=== PATIENT | male | born 1950 | race Caucasian/White ===

== ENCOUNTER 2017-02-27 00:01 | Inpatient (IN) | payer MEDICAID, OTHER ==
[~2017-02-27] VITALS: Ht 157.5 cm; Wt 63.5 kg
[2017-02-27 00:12] VITALS: BP 145/73
--- NOTE | 2017-02-27 00:23 | NUR ---
Patient to bed 08.
--- NOTE | 2017-02-27 00:36 | NUR ---
Dr. Manning evaluating patient at bedside.
[2017-02-27] MEDS ORDERED: KETOROLAC 30 MG/ML VIAL IVP ONE (00:40)
[2017-02-27] MEDS ORDERED: cefTRIAXone 2,000 MG in DEXTROSE 5% 100 ML IV ONE (00:40)
--- NOTE | 2017-02-27 00:40 | NUR ---
CAME IN WITH HEADACHE AND RIGHT EAR PAIN 09/03. LUX[place]BOURG[place] SPEAKING. AWAKE, ALERT, ORIENTED. SEEN BY DR. CASTORENA AT BEDSIDE.
[2017-02-27] MEDS ORDERED: cefTRIAXone 2,000 MG VIAL ONE (00:54)
--- NOTE | 2017-02-27 01:00 | NUR ---
INSERTED NEW IV PERIPHERAL ON RIGHT AC G20.
--- NOTE | 2017-02-27 02:07 | NUR ---
Fely best in [facility] - 02/27/17 at [address] Manning at bedside to speak with patient.
[2017-02-27] MEDS ORDERED: TEGRETOL200 MG PO (02:14)
[2017-02-27] MEDS ORDERED: GLUCOPHAGE1000 MG PO (02:14)
[2017-02-27] MEDS ORDERED: NORCO 5/325 MG1 TAB PO (02:14)
[2017-02-27] MEDS ORDERED: LOTENSIN40 MG PO (02:14)
[2017-02-27] MEDS ORDERED: PROMETHAZINE D240 ML PO (02:14)
[2017-02-27] MEDS ORDERED: PROSCAR5 M1 PO (02:14)
[2017-02-27] MEDS ORDERED: FLOMAX0.4 MG PO (02:14)
[2017-02-27] MEDS ORDERED: RANITIDINE150 M1 PO (02:14)
[2017-02-27] MEDS ORDERED: LOPRESSOR25 MG PO (02:14)
[2017-02-27] MEDS ORDERED: GLUCOTROL10 MG PO (02:14)
--- NOTE | 2017-02-27 02:24 | NUR ---
EXAMINED BY DR. CASTORENA AT THE BEDSIDE WITH AN PAINT DEPARTMENT SUPERVISOR. AWARE OF SODIUM 122.
[2017-02-27] MEDS ORDERED: ONDANSETRON 4 MG/2 ML VIAL IVP PRN (03:05)
[2017-02-27] MEDS ORDERED: ACETAMINOPHEN 325 MG TAB PO PRN (03:05)
[2017-02-27] MEDS ORDERED: BLOOD GLUCOSE MONITORING 1 DEV DEV FS SCH (03:10)
[2017-02-27] MEDS ORDERED: glipiZIDE 10 MG TAB PO PRN (03:10)
[2017-02-27] MEDS ORDERED: INSULIN HUMAN REGULAR 100 UNITS in NACL 0.9% 100 ML IV SCH (03:10)
[2017-02-27] MEDS ORDERED: HYDROcodone/APAP 5/325 MG 1 TAB TAB PO SCH (03:10)
[2017-02-27] MEDS ORDERED: DEXTROSE 50% 50 ML SYR IVP PRN (03:10)
--- NOTE | 2017-02-27 03:16 | NUR ---
Patient will be admitted to care of DR. NOLEN. Admited to TELEMETRY. Will go to room 122A. Belongings list completed. Report to BLOSSOM STAUFFER.
[2017-02-27 04:00] VITALS: BP 138/74
--- NOTE | 2017-02-27 04:00 | NUR ---
ADMITTED 66 Y/O MALE TO TELE UNIT FROM ER VIA [facility] WITH DX: SEVERE HYPONATREMIA AND MALIGNANT RT OTITIS MEDIA. INITIAL ASSESSMENT, BODY CHECK AND ADMISSION INTERVENTIONS DONE. PATIENT AAO X 4, ABLE TO FOLLOW COMMAND AND MAKE NEEDS KNOWN AND AMBULATORY. NO S/S OF DISTRESS OR SOB NOTED UPON ADMISSION. SKIN WARM/ DRY TO TOUCH WITH NORMAL COLOR AND INTACT. PATIENT STILL C/O HEADACHE AT THIS TIME. INSTRUCTED PATIENT TO ROOM/UNIT. ALSO, DISCUSSED PLAN OF CARE, PAIN MANAGEMENT AND MEDICATION REGIMEN WITH PATIENT AND PATIENT VERBALIZED UNDERSTANDING. PLACED PATIENT ON SAFETY PRECAUTIONS AND WILL CONTINUE TO MONITOR. CALL LIGHT LEFT WITHIN REACH.
[2017-02-27] MEDS: MORPHINE SULFATE 2 MG/ML SYR IVP PRN ×4 (04:08→21:08)
[2017-02-27] MEDS: NACL 0.9% 1,000 ML IV SCH ×3 (04:18→14:52)
--- NOTE | 2017-02-27 04:40 | NUR ---
ADMINISTERED IVF AND PAIN MEDICATIONS MD'S ORDERED WITH EDUCATION GIVEN. PATIENT TOLERATED WELL AND STATED WITH SOME PAIN RELIEF AFTER 30 MINS POST-MEDICATION. KEPT PATIENT IN COMFORTABLE POSITION/WARM AND WILL CONTINUE TO MONITOR.
[2017-02-27] MEDS: BLOOD GLUCOSE MONITORING 1 DEV DEV FS SCH ×4 (05:41→21:05)
--- NOTE | 2017-02-27 06:01 | NUR ---
NOTED BLOOD SUGAR 84 MG/DL AND NO INSULIN COVERAGE REQUIRED. GAVE 1 BOX OF APPLE JUICE AND PATIENT TOLERATED WELL. NO S/S OF HYPOGLYCEMIA.
--- NOTE | 2017-02-27 07:13 | NUR ---
ENDORSED PLAN OF CARE TO XIOMY HERNANDEZ, AT BEDSIDE. PATIENT REMAINED IN STABLE CONDITION AND NO APPARENT DISTRESS NOTED.
--- NOTE | 2017-02-27 07:50 | NUR ---
RECEIVED PT LYING IN BED AAOX4, PLEASANT AND COOPERATIVE. PT C/O HEADACHE 10/10 AND GENERALIZED WEAKNESS AND POOR APPETITE. PT ALSO MENTIONED ABOUT HAVING NO BM X5 DAYS. PT'S PRESENT AT BEDSIDE. SHIFT ASSESSMENT DONE AND CHARTED. PLAN OF CARE,MEDS, TREATMENTS AND SAFETY DISCUSSED WITH PT AND HIS AND BOTH VERBALIZED UNDERSTANDING. WILL MEDICATE PT FOR HEADACHE PER PRN ORDER. WILL CONTINUE TO MONITOR PT.
[2017-02-27 08:00] VITALS: BP 150/82
--- NOTE | 2017-02-27 08:34 | NUR ---
PATIENT HAS BEEN SCREENED AND CATEGORIZED MODERATE NUTRITION RISK. PATIENT WILL BE SEEN WITHIN 3-5 DAYS OF ADMISSION. 03/01/17-03/03/[address]
[2017-02-27] MEDS: metFORMIN 500 MG TAB PO SCH ×2 (08:39→17:58)
[2017-02-27] MEDS: FINASTERIDE 5 MG TAB PO SCH (08:39)
[2017-02-27] MEDS: carBAMazepine 200 MG TAB PO SCH (08:40)
[2017-02-27] MEDS: TAMSULOSIN 0.4 MG CAP PO SCH (08:40)
[2017-02-27] MEDS: BENAZEPRIL 20 MG TAB PO SCH (08:41)
[2017-02-27] MEDS ORDERED: BISACODYL 10 MG SUPP RC SCH (08:45)
--- NOTE | 2017-02-27 08:45 | NUR ---
DR. JARAMILLO WAS IN AND MADE AWARE OF PT C/O OF NO BM X 5 DAYS AND WAS ASKING FOR SUPPOSITORY. GAVE NEW ORDERS. WILL CONTINUE TO CHECK ON PT.
--- NOTE | 2017-02-27 08:56 | NUR ---
PT MEDICATED WITH MORPHINE 2 MG PER PRN ORDER FOR C/O HEADACHE 09/03. WILL CONTINUE TO CHECK ON PT.
[2017-02-27] MEDS ORDERED: PROMETHAZINE DM 6.25/15MG-5ML ORASYR PO SCH (09:00)
[2017-02-27] MEDS ORDERED: METOPROLOL 25 MG TAB PO SCH (09:00)
[2017-02-27] MEDS ORDERED: PROMETHAZINE DM 6.25/15MG-5ML ORASYR PO PRN (09:00)
--- NOTE | 2017-02-27 09:27 | NUR ---
LAB CALLED BARRON TELLEZ+ [phone]. WILL NOTIFY MD BARRON GUNTER.
--- NOTE | 2017-02-27 09:38 | NUR ---
PT LYING IN BED WITH EYES CLOSED. PT STATED THAT HE FELT BETTER BUT PAIN WAS STILL THERE 03/04.
--- NOTE | 2017-02-27 11:30 | NUR ---
DR. LOVELL WAS IN TO SEE PT. ALREADY AWARE OF NA+ OF 123. MD LEFT NO NEW ORDERS.
[2017-02-27 12:00] VITALS: BP 152/78
--- NOTE | 2017-02-27 12:13 | NUR ---
CM NOTE INITIAL REVIEW FAXED TO REINIER JASSO / FAX# [phone]
--- NOTE | 2017-02-27 13:31 | NUR ---
PT MEDICATED WITH MORPHINE 2 MG FOR C/O HEADACHE 08/04 PER PRN ORDER. WILL CONTINUE TO CHECK ON PT.
--- NOTE | 2017-02-27 14:30 | NUR ---
PT NOTED TO HAVE HIS EYES CLOSED AND RESTING COMFORTABLY IN BED WITH PT'S AND DAUGHTER AT BEDSIDE. WILL CONTINUE TO MONITOR PT.
[2017-02-27 16:00] VITALS: BP 160/88
--- NOTE | 2017-02-27 17:00 | NUR ---
PT STATED THAT HE SLEPT A LITTLE BIT. PT STATED THAT HE STILL HAS HEADACHE BUT BEARABLE AT THIS TIME. BP 160/88 DR. EASON NOTIFIED OF SAME.
[2017-02-27] MEDS: glipiZIDE 10 MG TAB PO SCH (17:58)
[2017-02-27] MEDS ORDERED: amLODIPine 5 MG TAB PO SCH (18:31)
--- NOTE | 2017-02-27 18:40 | NUR ---
PT NOTED TO BE EATING DINNER AT THIS TIME. PT'S DAUGHTER PRESENT AT BEDSIDE. NO C/O PAIN MADE BY PT AT THIS TIME.
--- NOTE | 2017-02-27 19:20 | NUR ---
REPORT GIVEN TO INES STAUFFER. NO CHANGES IN PT'S CONDITION.
--- NOTE | 2017-02-27 19:30 | NUR ---
RECEIVED PATIENT SLEEPING IN BED, WITH DAUGHTER AT BEDSIDE. NO SIGNS OF SOB OR DISTRESS NOTED. PATIENT CAN BE AROUSED BY NAME. VITAL SIGNS ARE STABLE. THERE IS A #20 IN THE RIGHT AC RECEIVING NORMAL SALINE 100 ML/HR. SITE IS DRY, INTACT, AND ASYMPTOMATIC. EXPLAINED PLAN OF CARE TONIGHT TO INCLUDE VITALS Q4H, SCHEDULED MEDICATION ADMINISTRATION, AND TELEMETRY MONITORING. PATIENT AND DAUGHTER VERBALIZED UNDERSTANDING. CALL LIGHT WITHIN REACH. WILL CONTINUE TO MONITOR.
[2017-02-27 20:00] VITALS: BP 161/83
[2017-02-27] MEDS: METOPROLOL 25 MG TAB PO SCH (21:08)
--- NOTE | 2017-02-27 21:10 | NUR ---
TOLERATED DUE MEDICATIONS. NO S/S OF DISCOMFORT OR SOB NOTED. PATIENT'S NEEDS MET AT THIS TIME. CALL LIGHT WITHIN REACH. CONTINUE TO MONITOR PATIENT.
[2017-02-28] VITALS: BP 155/77
--- NOTE | 2017-02-28 | NUR ---
PATIENT SLEEPING IN BED, BUT IS AROUSED BY NAME. VITALS ARE STABLE. NO REPORTS OF PAIN OR DISCOMFORT AT THIS TIME. PATIENT'S NEEDS MET AT THIS TIME. CALL LIGHT WITHIN REACH. WILL CONTINUE TO MONITOR PATIENT.
--- NOTE | 2017-02-28 02:00 | NUR ---
ROUNDED ON PATIENT. PATIENT IS ASLEEP IN BED. NO SIGNS OF DISTRESS OR DISCOMFORT NOTED. CALL LIGHT WITHIN REACH. CONTINUE TO MONITOR.
[2017-02-28 04:00] VITALS: BP 156/83
[2017-02-28] MEDS: NACL 0.9% 1,000 ML IV SCH ×2 (04:04→15:07)
--- NOTE | 2017-02-28 04:05 | NUR ---
ROUNDED ON PATIENT. PATIENT SLEEPING IN BED. BREATHING EVEN AND UNLABORED. CALL LIGHT WITHIN REACH. CONTINUE TO MONITOR.
[2017-02-28] MEDS: BLOOD GLUCOSE MONITORING 1 DEV DEV FS SCH ×4 (06:04→21:15)
[2017-02-28] MEDS: glipiZIDE 10 MG TAB PO SCH ×2 (06:32→16:29)
--- NOTE | 2017-02-28 07:16 | NUR ---
PATIENT IN STABLE CONDITION. ENDORSED CONTINUITY OF CARE TO NICK STAUFFER.
--- NOTE | 2017-02-28 07:30 | NUR ---
RECEIVED PT FROM INES STAUFFER. PT SITING IN BED, TOGOLESE SPEAKING ONLY. ON ROOM AIR, NO S/S OF RESPIRATORY DISTRESS NOTED. IV TO RIGHT AC , SITE INTACT AND PATENT. PT HAS GENERALIZED WEAKNESS. VITALS TAKEN, SKIN INTACT, HOB ELEVATED 30 DEGREES WITH LOW BED POSITION, WILL CONTINUE TO MONITOR.
[2017-02-28 08:00] VITALS: BP 157/84
[2017-02-28] MEDS: metFORMIN 500 MG TAB PO SCH ×2 (08:20→17:22)
[2017-02-28] MEDS: amLODIPine 5 MG TAB PO SCH (08:21)
[2017-02-28] MEDS: BENAZEPRIL 20 MG TAB PO SCH (08:21)
[2017-02-28] MEDS: carBAMazepine 200 MG TAB PO SCH (08:22)
[2017-02-28] MEDS: METOPROLOL 25 MG TAB PO SCH ×2 (08:22→21:17)
[2017-02-28] MEDS: FINASTERIDE 5 MG TAB PO SCH (08:23)
[2017-02-28] MEDS: TAMSULOSIN 0.4 MG CAP PO SCH (08:23)
--- NOTE | 2017-02-28 08:45 | NUR ---
BREAKFAST TRAY SERVED.
--- NOTE | 2017-02-28 10:00 | NUR ---
PT'S FAMILY AT BEDSIDE.
[2017-02-28] MEDS: MORPHINE SULFATE 2 MG/ML SYR IVP PRN ×3 (10:03→23:07)
--- NOTE | 2017-02-28 10:13 | NUR ---
NOTIFIED ON THE CONSULTATION OF THIS PATIENT.
--- NOTE | 2017-02-28 11:30 | NUR ---
DR. LOVELL AT BEDSIDE TO ASSESS PT.
[2017-02-28] MEDS ORDERED: MECLIZINE 25 MG TAB PO PRN (11:40)
[2017-02-28 12:00] VITALS: BP 142/78
[2017-02-28] MEDS: AMPICILLIN/SULBACTAM 1.5 GM in NACL 0.9% 50 ML IV SCH ×3 (12:17→23:07)
--- NOTE | 2017-02-28 13:27 | NUR ---
CM NOTE INITIAL REVIEW FAXED TO REINIER JASSO / FAX# [phone] Addendum: 02/28/17 at 1438 by Oc Zavala RN CM FOR REINIER JASSO: PARVIZ CELL: [phone], WORK: [phone]
[2017-02-28] MEDS: BENZOCAINE/MENTHOL 1 LOZ MM PRN (14:08)
[2017-02-28] MEDS ORDERED: MAGNESIUM HYDROXIDE 2400 MG/30 ML UDC PO SCH (14:20)
[2017-02-28] MEDS ORDERED: MAGNESIUM OXIDE 400 MG TAB PO SCH (14:45)
--- NOTE | 2017-02-28 15:35 | NUR ---
PT RESTING IN BED. NO SOB
[2017-02-28 16:00] VITALS: BP 133/79
--- NOTE | 2017-02-28 19:00 | NUR ---
REPORT GIVEN TO TETE. PT AWAKE, ALERT, AND ORIENTED. NO S/S OF RESPIRATORY DISTRESS NOTED.
--- NOTE | 2017-02-28 19:25 | NUR ---
RECEIVED REPORT FROM XIOMY ROMERO AT BEDSIDE. INITIAL ASSESSMENT COMPLETED. PT AAOX4. PT HAS IV TO RIGHT AC G 20; ASYMPTOMATIC, PATENT AND INTACT. PT'S SKIN IS INTACT. PT'S SON AT BEDSIDE. ORIENTED PT AND SON TO ROOM AND SURROUNDINGS AND USE OF CALL LIGHT. EXPLAINED PLAN OF CARE TO PT AND SON. WILL CONTINUE TO MONITOR PT.
[2017-02-28 20:00] VITALS: BP 145/67
--- NOTE | 2017-02-28 20:05 | NUR ---
PT AMBULATING WITH SON. PT STABLE, WILL CONTINUE TO MONITOR.
[2017-02-28] MEDS: MAGNESIUM OXIDE 400 MG TAB PO SCH (21:16)
[2017-02-28] MEDS: INSULIN LISPRO SLIDING SCALE 100 UNITS/ML VIAL SUBQ PRN (21:16)
--- NOTE | 2017-02-28 21:19 | NUR ---
PT TOLERATED 2100 MEDS WELL. WILL CONTINUE TO MONITOR PT.
--- NOTE | 2017-02-28 23:04 | NUR ---
PT COMPLAINING OF EAR PAIN 07/04. VS STABLE, WILL MEDICATE ORDERED.
[2017-03-01] VITALS: BP 141/69
--- NOTE | 2017-03-01 01:05 | NUR ---
PT STATED THAT HE IS HUNGRY. PT REQUESTED CRACKERS AND MILK. WILL PROVIDE PT WITH SNACKS. CALL LIGHT WITHIN REACH.
[2017-03-01] MEDS: NACL 0.9% 1,000 ML IV SCH ×2 (02:03→14:29)
[2017-03-01 04:00] VITALS: BP 145/71
--- NOTE | 2017-03-01 04:05 | NUR ---
PT SLEEPING, VS STABLE. IV FLUIDS INFUSING WELL. WILL CONTINUE TO MONITOR PT.
[2017-03-01] MEDS: AMPICILLIN/SULBACTAM 1.5 GM in NACL 0.9% 50 ML IV SCH ×4 (05:05→23:17)
[2017-03-01] MEDS: BLOOD GLUCOSE MONITORING 1 DEV DEV FS SCH ×4 (06:10→20:54)
[2017-03-01] MEDS: glipiZIDE 10 MG TAB PO SCH ×2 (06:32→16:12)
--- NOTE | 2017-03-01 06:34 | NUR ---
PT TOLERATED 0730 MED WELL. WILL CONTINUE TO MONITOR PT.
--- NOTE | 2017-03-01 07:15 | NUR ---
ENDORSED PLAN OF CARE TO KANDY FOR CONTINUITY OF CARE. PT IN STABLE CONDITION.
--- NOTE | 2017-03-01 07:20 | NUR ---
RECEIVED REPORT FROM XIOMY EPSTEIN. PT SLEEPING BUT EASILY AWAKEN, A/OX4, IV IS ON THE RT AC, PATENT, INTACT, INFUSING WELL, SKIN IS INTACT, NO S/S OF RESPIRATORY DISTRESS OR DISCOMFORT NOTED, FALL/SAFETY PRECAUTIONS ARE IN PLACE, DISCUSSED PLAN OF CARE WITH PT, PT VERBALIZED UNDERSTANDING, CALL LIGHT IS WITHIN REACH, WILL CONTINUE TO MONITOR.
[2017-03-01 08:00] VITALS: BP 158/83
[2017-03-01] MEDS: TAMSULOSIN 0.4 MG CAP PO SCH (08:46)
[2017-03-01] MEDS: metFORMIN 500 MG TAB PO SCH ×2 (08:46→16:12)
[2017-03-01] MEDS: BENAZEPRIL 20 MG TAB PO SCH (08:47)
[2017-03-01] MEDS: MAGNESIUM OXIDE 400 MG TAB PO SCH (08:47)
[2017-03-01] MEDS: METOPROLOL 25 MG TAB PO SCH ×2 (08:47→20:55)
[2017-03-01] MEDS: amLODIPine 5 MG TAB PO SCH (08:48)
[2017-03-01] MEDS: FINASTERIDE 5 MG TAB PO SCH (08:48)
[2017-03-01] MEDS: carBAMazepine 200 MG TAB PO SCH (08:48)
[2017-03-01] MEDS: BENZOCAINE/MENTHOL 1 LOZ MM PRN ×2 (08:49→14:05)
--- NOTE | 2017-03-01 09:45 | NUR ---
PT IS SITTING IN BED EATING BREAKFAST.
[2017-03-01] MEDS: MORPHINE SULFATE 2 MG/ML SYR IVP PRN ×2 (10:05→14:06)
[2017-03-01 12:00] VITALS: BP 137/77
--- NOTE | 2017-03-01 12:00 | NUR ---
PT RESTING IN BED, IS AT HIS BEDSIDE. CALL LIGHT WITHIN REACH, WILL CONTINUE TO MONITOR.
--- NOTE | 2017-03-01 13:48 | NUR ---
FAXED CONCURRENT REVIEW TO REINIER JASSO [phone] PHONE [phone]
--- NOTE | 2017-03-01 14:30 | NUR ---
PT SLEEPING AT THIS TIME, IS AT BEDSIDE.
--- NOTE | 2017-03-01 15:45 | NUR ---
PT IS WALKING DOWN THE [place] ACCOMPANIED BY , PT STABLE AT THIS TIME.
[2017-03-01 16:00] VITALS: BP 141/69
[2017-03-01] MEDS: HYDROcodone/APAP 5/325 MG 1 TAB TAB PO PRN ×2 (16:12→23:17)
[2017-03-01] MEDS: INSULIN LISPRO SLIDING SCALE 100 UNITS/ML VIAL SUBQ PRN (17:07)
--- NOTE | 2017-03-01 19:10 | NUR ---
ENDORSED PT TO XIOMY EPSTEIN. FOR CONTINUITY OF CARE. PT STABLE AT THIS TIME.
--- NOTE | 2017-03-01 19:15 | NUR ---
RECEIVED REPORT FROM XIOMY GAITAN AT BEDSIDE. INITIAL ASSESSMENT COMPLETED. PT AAOX4. PT STABLE, VS STABLE. PT HAS IV TO RIGHT AC G 20; ASYMPTOMATIC, PATENT AND INTACT. PT'S SKIN IS INTACT. ORIENTED PT TO ROOM AND SURROUNDINGS AND USE OF CALL LIGHT. EXPLAINED PLAN OF CARE TO PT AND HE VERBALIZES UNDERSTANDING. WILL CONTINUE TO MONITOR PT.
[2017-03-01 20:00] VITALS: BP 141/73
--- NOTE | 2017-03-01 20:57 | NUR ---
PT TOLERATED 2100 MEDICATION WELL. PT EDUCATED ON MEDICATION. CALL LIGHT WITHIN REACH.
--- NOTE | 2017-03-01 23:14 | NUR ---
PT COMPLAINING OF EAR PAIN 05/04. VS STABLE, WILL MEDICATE ORDERED.
[2017-03-02] VITALS: BP 139/72
--- NOTE | 2017-03-02 00:54 | NUR ---
PT SLEEPING COMFORTABLY AT THIS TIME, NO SIGNS OF DISTRESS OR DISCOMFORT NOTED. WILL CONTINUE TO MONITOR PT.
[2017-03-02] MEDS: NACL 0.9% 1,000 ML IV SCH ×3 (01:02→21:02)
--- NOTE | 2017-03-02 02:41 | NUR ---
IV PUMP ALARMING, CHECKED ON PT AND FLUSHED IV. FLUIDS INFUSING NOW. CALL LIGHT WITHIN REACH.
--- NOTE | 2017-03-02 04:25 | NUR ---
PT SITTING ON BED USING URINAL. PT STABLE, PT DENIES ANY DISCOMFORT. WILL CONTINUE TO MONITOR PT.
[2017-03-02] MEDS: AMPICILLIN/SULBACTAM 1.5 GM in NACL 0.9% 50 ML IV SCH ×3 (05:59→17:12)
--- NOTE | 2017-03-02 06:20 | NUR ---
PT AMBULATED TO THE RESTROOM. PT HAD A MEDIUM SIZE FORMED BOWEL MOVEMENT. PT BACK IN BED NOW. WILL CONTINUE TO MONITOR.
[2017-03-02] MEDS: BLOOD GLUCOSE MONITORING 1 DEV DEV FS SCH ×4 (06:35→21:06)
[2017-03-02] MEDS: glipiZIDE 10 MG TAB PO SCH ×2 (06:35→16:59)
--- NOTE | 2017-03-02 07:05 | NUR ---
ENDORSED PLAN OF CARE TO KANDY FOR CONTINUITY OF CARE. PT IN STABLE CONDITION.
[2017-03-02 08:00] VITALS: BP 158/79
[2017-03-02] MEDS: amLODIPine 5 MG TAB PO SCH (08:16)
[2017-03-02] MEDS: carBAMazepine 200 MG TAB PO SCH (08:17)
[2017-03-02] MEDS: FINASTERIDE 5 MG TAB PO SCH (08:17)
[2017-03-02] MEDS: METOPROLOL 25 MG TAB PO SCH ×2 (08:17→20:26)
[2017-03-02] MEDS: TAMSULOSIN 0.4 MG CAP PO SCH (08:17)
[2017-03-02] MEDS: MORPHINE SULFATE 2 MG/ML SYR IVP PRN ×2 (08:18→12:48)
[2017-03-02] MEDS: metFORMIN 500 MG TAB PO SCH ×2 (08:18→16:59)
[2017-03-02] MEDS: BENAZEPRIL 20 MG TAB PO SCH (08:18)
[2017-03-02] MEDS: BENZOCAINE/MENTHOL 1 LOZ MM PRN (08:18)
--- NOTE | 2017-03-02 08:18 | NUR ---
DUE MEDICATIONS GIVEN, PT TOLERATED WELL, PT ASKED IF HE CAN GET UP FROM BED AND WALK AROUND THE [place] AND NURSES STATION, I LET THE PT KNOW THAT WOULD BE FINE.
--- NOTE | 2017-03-02 09:55 | NUR ---
ATTENDING RESIDENT DOCTOR IN THE ROOM WITH THE PT. DOCTOR STATED HE WOULD PUT IN AN ORDER TO REPEAT CXR.
[2017-03-02] MEDS ORDERED: FUROSEMIDE 40 MG/4 ML VIAL IVP SCH (10:15)
--- NOTE | 2017-03-02 10:58 | NUR ---
03/02/17 RD INITIAL ASSESSMENT COMPLETED PLEASE REFER TO NUTRITION ASSESSMENT UNDER CARE ACTIVITY FOR ESTIMATED NUTRITIONAL NEEDS. RD RECOMMENDATIONS: 1. CONTINUE ON CCHO 60 GM DIET TOLERATED. 2. RDN TO PROVIDE DIABETIC HEALTH SHAKE (4-OZ) TID WITH MEALS TO HELP MEET NUTRITION NEEDS R/T INADEQUATE ORAL INTAKE. 3. RD WILL F/U 5-7 DAYS; LOW RISK. SHELLEY TRINH, , RDN
--- NOTE | 2017-03-02 11:15 | NUR ---
INFORMED RESIDENT DOCTOR OF DECREASED H/H LEVELS. PER DOCTOR HOLD IV FLUIDS AND PUT PT ON HEP LOCK.
--- NOTE | 2017-03-02 11:35 | NUR ---
PT RESTING IN BED, IS AT BEDSIDE, NO S/S OF RESPIRATORY DISTRESS OR DISCOMFORT NOTED, CALL LIGHT WITHIN REACH, WILL CONTINUE TO MONITOR.
[2017-03-02] MEDS: INSULIN LISPRO SLIDING SCALE 100 UNITS/ML VIAL SUBQ PRN (12:36)
--- NOTE | 2017-03-02 12:48 | NUR ---
PT COMPLAINED OF A 9/10 RT EAR PAIN. WILL MEDICATE WITH PRN PAIN MEDICATION AT THIS TIME.
--- NOTE | 2017-03-02 13:30 | NUR ---
PER PT HE IS STILL HAVING A 9/10 RT EAR PAIN AND MORPHINE HAS NOT BEEN HELPING DECREASE HIS PAIN, I INFORMED DR. NUNEZ, PER DOCTOR HE WILL PUT IN ORDER FOR TORADOL AND IBUPROFEN.
[2017-03-02] MEDS: KETOROLAC 30 MG/ML VIAL IVP PRN ×2 (14:47→22:02)
--- NOTE | 2017-03-02 15:33 | NUR ---
PT IS SLEEPING AT THIS TIME, SON IS AT BEDSIDE, NO S/S OF RESPIRATORY DISTRESS OR DISCOMFORT NOTED, CALL LIGHT IS WITHIN REACH, WILL CONTINUE TO MONITOR.
[2017-03-02 16:00] VITALS: BP 150/79
[2017-03-02] MEDS: IBUPROFEN 600 MG TAB PO SCH (16:59)
--- NOTE | 2017-03-02 18:00 | NUR ---
PT SITTING IN BED, WATCHING TV, FAMILY IS AT BEDSIDE.
--- NOTE | 2017-03-02 19:25 | NUR ---
ENDORSED PT TO XIOMY SMITH. FOR CONTINUITY OF CARE, PT STABLE AT THIS TIME.
--- NOTE | 2017-03-02 19:28 | NUR ---
Patient's Plan of Care was discussed and reviewed with NANOSYSTEMS ENGINEER: ANGE
--- NOTE | 2017-03-02 19:30 | NUR ---
PATIENT IS CURRENTLY RESTING IN BED AWAKE ALERT ORIENTED MOSTLY TAJIK SPEAKING.PATIENT DENIES PAIN AT THIS TIME.PT SKIN INTACT IV TO RT AC PATENT.FAMILY AT BEDSIDE WITH THE PATIENT.CALL LIGHT WITHIN REACH WILL CONTINUE TO MONITOR.
[2017-03-02 20:00] VITALS: BP 149/77
--- NOTE | 2017-03-02 20:26 | NUR ---
EDUCATION GIVEN ON ROUTINE NIGHT MEDICATIONS PATIENT VERBALIZES UNDERSTANDING AND TOOK THE MEDICATIONS WITH WATER.WILL CONTINUE TO MONITOR.CALL LIGHT WITHIN REACH.WILL CONTINUE TO MONITOR.
--- NOTE | 2017-03-02 21:06 | NUR ---
PATIENT RESTING IN BED FAMILY AT BEDSIDE BLOOD SUGAR CHECK DONE CURRENTLY 49 PATIENT IS ASYMPTOMATIC PATIENT ABLE TO TALK DENIES ANY DIZZINESS PATIENT NOT SWEATING.BLOOD SUGAR WAS RECHECKED RESULT 52.XIOMY REAGAN INFORMED SHE SAID SHE IS CURRENTLY BUSY SO I INFORMED RN RESOURCE NURSE BERNABE ADMINISTER D50% IV ORDERED SHE SAID SHE WILL COME TO ADMINISTER.
--- NOTE | 2017-03-02 22:07 | NUR ---
PATIENT BLOOD SUGAR WAS CHECKED CURRENTLY 142 PATIENT CURRENTLY STABLE.WILL CONTINUE TO MONITOR.
--- NOTE | 2017-03-02 23:49 | NUR ---
PATIENT IS CURRENTLY SLEEPING IN BED AT THIS TIME NO COMPLAINS OF PAIN OR DISCOMFORT.CALL LIGHT WITHIN REACH WILL CONTINUE TO MONITOR.
[2017-03-03] MEDS: AMPICILLIN/SULBACTAM 1.5 GM in NACL 0.9% 50 ML IV SCH ×3 (00:16→11:29)
--- NOTE | 2017-03-03 01:23 | NUR ---
PATIENT SLEEPING QUIETLY IN BED.
--- NOTE | 2017-03-03 01:43 | NUR ---
PATIENT CALLED AND SAID HIS IV IS OUT.I WENT TO CHECK ON THE PATIENT AND FOUND HIS IV OUT OF PLACE IT WAS REMOVED SITE WAS CLEANED WITH ALCOHOL AND A NEW IV RESTARTED TO RT SIDE OF WRIST G#22 AT SECOND ATTEMPT WITH GOOD BLOOD RETURN.IV SECURED WELL AND IVF INFUSING WELL.PATIENT WANTS TO EAT A SNACK SO PATIENT CURRENTLY SITTING UP EATING MILK AND MICHELLE CRACKERS.
--- NOTE | 2017-03-03 02:01 | NUR ---
PATIENT COMPLAINS OF HEADACHE BUT REFUSES TO TAKE TYLENOL I OFFERED PT REFUSES I OFFERED MORPHINE PATIENT REFUSED IT ALSO PT STATES,"TORADOL IS EFFECTIVE."
--- NOTE | 2017-03-03 02:01 | NUR ---
I EXPLAINED TO THE PATIENT THAT ITS NOT TIME FOR HIS NEXT DOSE OF TORADOL. AND TOLD HIM THAT IF HE CHANGES HIS MIND AND DECIDES TO GET THE TYLENOL I WILL COME AND BRING IT.PT VERBALIZES UNDERSTANDING.
--- NOTE | 2017-03-03 04:15 | NUR ---
PATIENT IS CURRENTLY USING THE URINAL AND SPILLED SOME URINE ON THE FLOOR EVS HAS BEEN PAGED.PATIENT ASSISTED BACK TO BED,IVF INFUSING WELL IV SITE PATENT WILL CONTINUE TO MONITOR.CALL LIGHT WITHIN REACH.
[2017-03-03] MEDS: KETOROLAC 30 MG/ML VIAL IVP PRN (04:42)
[2017-03-03] MEDS: BLOOD GLUCOSE MONITORING 1 DEV DEV FS SCH ×2 (06:36→11:07)
--- NOTE | 2017-03-03 06:51 | NUR ---
PATIENT IS CURRENTLY ASLEEP.NO PAIN OR DISCOMFORT NOTED NO PAIN OR DISCOMFORT.CALL LIGHT WITHIN REACH.
[2017-03-03] MEDS: NACL 0.9% 1,000 ML IV SCH (07:02)
--- NOTE | 2017-03-03 07:28 | NUR ---
PATIENT STABLE REPORT ENDORSED TO XIOMY RICHEY AT BEDSIDE HE WILL RESUME CARE OF THE PATIENT.
[2017-03-03 08:00] VITALS: BP 169/87
--- NOTE | 2017-03-03 08:00 | NUR ---
PATIENT ALERT AND ORIENTED X4, BREATHING EVEN AND UNLABORED BILATERALLY, NO SIGNS OF ACUTE DISTRESS, ABDOMEN SOFT AND ROUND, BOWEL AND BLADDER CONTINENCE, AMBULATES AND ABLE TO PERFORM ADL'S INDEPENDENTLY, SKIN DRY AND INTACT, NO COMPLAINT OF PAIN AT THIS TIME, ARMENIAN SPEAKING, BED IN LOW POSITION WITH BILATERAL HALF SIDE RAILS UP, CALL LIGHT WITHIN REACH.
[2017-03-03] MEDS: TAMSULOSIN 0.4 MG CAP PO SCH (08:16)
[2017-03-03] MEDS: IBUPROFEN 600 MG TAB PO SCH ×2 (08:16→11:29)
[2017-03-03] MEDS: FINASTERIDE 5 MG TAB PO SCH (08:16)
[2017-03-03] MEDS: metFORMIN 500 MG TAB PO SCH (08:16)
[2017-03-03] MEDS: BENAZEPRIL 20 MG TAB PO SCH (08:17)
[2017-03-03] MEDS: glipiZIDE 10 MG TAB PO SCH (08:17)
[2017-03-03] MEDS: METOPROLOL 25 MG TAB PO SCH (08:17)
[2017-03-03] MEDS: carBAMazepine 200 MG TAB PO SCH (08:17)
[2017-03-03] MEDS: amLODIPine 5 MG TAB PO SCH (08:17)
--- NOTE | 2017-03-03 09:08 | NUR ---
RECEIVE ORDER FROM DR. NUNEZ. MARCH D/C HOME. NOTED. TO CARRY OUT.
[2017-03-03] MEDS ORDERED: BD LACTINEX1.4 MG PO (09:16)
[2017-03-03] MEDS ORDERED: LEVAQUIN750 MG PO (09:16)
[2017-03-03] MEDS ORDERED: MOTRIN600 M1 PO (09:16)
[2017-03-03] MEDS ORDERED: GOOD SENSE OMEP20 MG PO (09:20)
[2017-03-03] MEDS ORDERED: NORCO 325 MG-7.1 TAB PO (10:20)
--- NOTE | 2017-03-03 13:30 | NUR ---
PT ALERT AND ORIENTED, NO SIGNS OF ACUTE DISTRESS. MAY D/C HOME ORDERED. EDUCATED PT AND FAMILY ON CONTINUING PLAN OF CARE. FOLLOW UP WITH PCP IN 1 WEEK. REVIEWED DISCHARGE PRESCRIPTIONS, SIDE EFFECTS AND INDICATION. PT AND FAMILY VERBALIZED UNDERSTANDING. IV LINE AND WRISTS BANDS REMOVED, PERSONAL BELONGINGS WITH PT UPON DISCHARGE. PICKED UP BY FAMILY MEMBER AND ESCORTED OUTSIDE BY WHEELCHAIR. TO GO HOME WITH PRIVATE AUTO.
== END 2017-03-03 13:30 | disposition home or self-care (01) | DRG 153 ==
LOC: MED 00:01 → MTU 02:59
PROVIDERS: ADMIT Family Medicine; ATTEND Family Medicine
DX: J01.90 Acute sinusitis, unspecified (principal); H70.001 Acute mastoiditis without complications, right ear; D68.59 Other primary thrombophilia; E44.0 Moderate protein-calorie malnutrition; E22.2 Syndrome of inappropriate secretion of antidiuretic hormone; I42.9 Cardiomyopathy, unspecified; E87.1 Hypo-osmolality and hyponatremia; E11.65 Type 2 diabetes mellitus with hyperglycemia; D64.9 Anemia, unspecified; K21.9 Gastro-esophageal reflux disease without esophagitis; E83.42 Hypomagnesemia; I51.7 Cardiomegaly; I11.9 Hypertensive heart disease without heart failure; N40.0 Benign prostatic hyperplasia without lower urinary tract symptoms; Z53.29 Procedure and treatment not carried out because of patient's decision for other reasons; E87.8 Other disorders of electrolyte and fluid balance, not elsewhere classified; J32.9 Chronic sinusitis, unspecified; H66.91 Otitis media, unspecified, right ear; Z79.899 Other long term (current) drug therapy; Z83.3 Family history of diabetes mellitus; Z68.25 Body mass index [BMI] 25.0-25.9, adult

== ENCOUNTER 2019-10-11 21:31 | Emergency (ER) | payer OTHER, MEDICAID ==
[~2019-10-11] VITALS: Ht 165.1 cm; Wt 81.6 kg
[~2019-10-11 21:31] MED LIST: BENA40TA PO; CARB200T1 PO; FINA5TAB1 PO; GLIP10TA3 PO; HYDR-5123 PO; IBUP-2213 PO; LACT1.4C PO; LEVO750T2 PO; METF1000 PO; METO25TA PO; OMEP20TC12 PO; RANI150T8 PO; TAMS0.4C96 PO
[2019-10-11 21:43] VITALS: BP 171/79
--- NOTE | 2019-10-11 22:14 | NUR ---
69 Y/O MALE WITH C/O HIGH BP, LT SIDED NECK PAIN, CHEST DISCOMFORT, HEADACHE. CHEST DISCOMFORT X2 MONTHS, HEADACHE X5 DAYS. PT STATES WENT TO PCP SATURDAY AND GOT A PILL IN WHICH HE IS UNSURE OF WHAT IT WAS AND FELT BETTER. DENIES NAUSEA. DENIES SOB/DIFFICULTY BREATHING. PT PLACED ON MONITOR. RR EVEN AND UNLABORED. PT CALM AND PLEASANT IN BED, AT BEDSIDE. VSS. MEDHX: HTN, DM ALLERGIES: NKA
--- NOTE | 2019-10-11 23:33 | NUR ---
PT AMBULATED TO RESTROOM
--- NOTE | 2019-10-11 23:47 | NUR ---
Dr. Arrieta examining patient.
[2019-10-12 00:05] LABS: BASOPHILS % (AUTO) 0.7 % (0.0-2.0); EOSINOPHILS # (AUTO) 0.2 K/uL (0-0.4); EOSINOPHILS % (AUTO) 2.9 % (0.0-4.0); HEMATOCRIT 40.4 % (36-52); HEMOGLOBIN 13.5 g/dL (12.0-18.0); LYMPHOCYTES # (AUTO) 2.2 K/uL (2.0-11.5); LYMPHOCYTES % (AUTO) 34.3 % (20.5-51.1); MEAN CORPUSCULAR HEMOGLOBIN 31 pg (27-31); MEAN CORPUSCULAR HGB CONC 33 g/dL (33-37); MEAN CORPUSCULAR VOLUME 93.3 fL (80-94); MONOCYTES # (AUTO) 0.4 K/uL (0.8-1.0); MONOCYTES % (AUTO) 6.6 % (1.7-9.3); NEUTROPHILS # (AUTO) 3.5 K/uL (1.8-7.7); NEUTROPHILS % (AUTO) 55.5 % (42.2-75.2); PLATELET COUNT (AUTO) 226 K/uL (140-450); RED BLOOD CELL COUNT(AUTO) 4.34 MIL/uL (4.20-6.10); RED CELL DISTRIBUTION WIDTH 13.1 % (11.6-13.7); WHITE BLOOD COUNT (AUTO) 6.3 K/uL (4.8-10.8)
[2019-10-12 00:23] LABS: ANION GAP 13.9 (8-16); CARBON DIOXIDE 24.4 mmol/L (21-32); CHLORIDE 104 mmol/L (98-107); CREATININE 1.4 mg/dL (0.7-1.3); GLUCOSE 227 mg/dL (74-106); POTASSIUM 4.3 mmol/L (3.5-5.1); SODIUM SERUM 138 mmol/L (136-145); UREA NITROGEN, BLOOD 25 mg/dL (7-18)
[2019-10-12 00:27] LABS: PROTHROMBIN TIME 9.8 secs (10.8-13.4)
[2019-10-12 00:28] LABS: ALBUMIN 3.7 g/dL (3.4-5.0); ASPARTATE AMINOTRANSFERASE 14 U/L (15-37); TOTAL BILIRUBIN 0.2 mg/dL (0.0-1.0)
--- NOTE | 2019-10-12 00:32 | NUR ---
Fely best in ED - 10/12/19 at 0032 by [email or web address] XRAY AT BEDSIDE.
--- NOTE | 2019-10-12 00:32 | NUR ---
X-Ray at bedside.
--- NOTE | 2019-10-12 00:35 | NUR ---
PT RESTING IN BED POSITIONED FOR COMFORT. DENIES CHEST PAIN AT THIS TIME. 01/04 HEADACHE. MD MADE AWARE. VSS. WILL CONTINUE TO MONITOR.
--- NOTE | 2019-10-12 02:19 | NUR ---
PT LAYING IN BED STATES SLIGHT HEAD PAIN, BUT RELIEF OF NECK DISCOMFORT. MD MADE AWARE OF PT STATUS. VSS. WILL CONTINUE TO MONITOR.
[2019-10-12 02:44] VITALS: BP 130/70
--- NOTE | 2019-10-12 02:44 | NUR ---
Patient discharged with v/s stable. Written and verbal after care instructions given and explained. Patient verbalized understanding. Ambulatory with steady gait. All questions addressed prior to discharge. Advised to follow up with PMD. PT ACCOMPANIED BY UPON DISCHARGE. IV REMOVED.
== END 2019-10-12 02:44 | disposition home or self-care (01) ==
LOC: MED 21:31
DX: I10 Essential (primary) hypertension (principal); R07.9 Chest pain, unspecified; R51 Headache; E11.9 Type 2 diabetes mellitus without complications; Z79.84 Long term (current) use of oral hypoglycemic drugs; Z79.899 Other long term (current) drug therapy
CPT/HCPCS: 36415; 71045; 80053; 83880; 84484; 85025; 85610; 85730; 93005; 99284; Q0092